=== PATIENT | male | born 1995 ===

== ENCOUNTER 2023-11-12 05:47 | Emergency (ER) | payer OTHER ==
[~2023-11-12] VITALS: Ht 188 cm; Wt 83.9 kg
[2023-11-12] MEDS ORDERED: TraMADol HCl 50 MG Tab PO ONE (06:25)
[2023-11-12] MEDS ORDERED: NAPR500 PO (06:29)
== END 2023-11-12 06:52 | disposition home or self-care (01) ==
LOC: ER 05:47
DX: S93.422A Sprain of deltoid ligament of left ankle, initial encounter (principal); X50.1XXA Overexertion from prolonged static or awkward postures, initial encounter; Y93.51 Activity, roller skating (inline) and skateboarding
CPT/HCPCS: 73610; 99283-25; A9270